=== PATIENT | female | born 1945 | race Caucasian/White ===

== ENCOUNTER 2018-02-04 19:33 | Emergency (ER) | payer MEDICARE, OTHER | END 2018-02-04 20:47 | disposition home or self-care (01) | LOC: E/R 19:33 | DX: B02.9 Zoster without complications (principal); I10 Essential (primary) hypertension; E11.9 Type 2 diabetes mellitus without complications; Z79.84 Long term (current) use of oral hypoglycemic drugs | CPT/HCPCS: 99283 ==